=== PATIENT | female | born 1970 | race Caucasian/White ===

== ENCOUNTER 2017-05-24 16:48 | Emergency (ER) | payer BC ==
[~2017-05-24] VITALS: Ht 175.3 cm; Wt 53.1 kg
[2017-05-24] MEDS ORDERED: BUPR150T10 PO (17:32)
--- NOTE | 2017-05-24 17:39 | NUR ---
Received ALOX4 with pt c/o of leg pain. US at bedside at this time.
--- NOTE | 2017-05-24 18:21 | NUR ---
Home with ACI no rx given to pt at dc pt states that she understands.
[2017-05-24 18:22] VITALS: BP 124/75
== END 2017-05-24 18:33 | disposition home or self-care (01) ==
LOC: ER 16:49
DX: M84.372A Stress fracture, left ankle, initial encounter for fracture (principal); J45.909 Unspecified asthma, uncomplicated; Z88.2 Allergy status to sulfonamides
CPT/HCPCS: A4663